=== PATIENT | female | born 1985 | race Caucasian/White ===

== ENCOUNTER → 2021-04-12 | Outpatient (CLI) | payer BC ==
[2021-04-12 17:10] LABS: HEMATOCRIT 36.7 % (36.0-47.0); HEMOGLOBIN 12.5 g/dl (12.0-15.5); MEAN CORPUSCULAR HEMOGLOBIN 31.4 pg (27.0-33.0); MEAN CORPUSCULAR HGB CONC 34.1 g/dl (32.0-36.5); MEAN CORPUSCULAR VOLUME 92.2 fl (80.0-96.0); PLATELET COUNT, AUTOMATED 221 10^3/uL (150-450); RED BLOOD COUNT 3.98 10^6/uL (4.00-5.40)
== END ==
LOC: M PLALAB 15:34
PROVIDERS: ATTEND Obstetrics & Gynecology
DX: Z34.90 Encounter for supervision of normal pregnancy, unspecified, unspecified trimester (principal); Z3A.00 Weeks of gestation of pregnancy not specified

== ENCOUNTER → 2021-04-12 | Outpatient (CLI) | payer BC ==
--- NOTE | 2021-04-12 15:39 | REP ---
INDICATION: . COMPARISON: None. TECHNIQUE: Real-time sonographic evaluation of pelvis performed. FINDINGS: A large sac-like structure is seen in the uterus measuring approximately 71 x 12 x 40 mm. Average diameter 41 mm would correspond to estimated age 9 weeks 5 days. There is no internal yolk sac or pole identified. Right ovary measures 3.4 x 2.0 x 1.5 cm and left ovary 3.4 x 2.3 x 2.7 cm. There is a 2 cm cystic structure in the left ovary probably representing a corpus luteum. No free fluid is seen in there is no other evidence of adnexal mass. IMPRESSION: Sac-like structure in the uterus 71 x 12 x 40 mm. No internal yolk sac or pole. No suspicious adnexal mass or free fluid. The findings most likely represent a blighted ovum. Recommend correlation with serial quantitative beta HCG values to rule out the less likely possibility that this represents a pseudo gestational sac of ectopic . <Electronically signed by Harrison Garnica > 04/12/21 [id number]
== END ==
LOC: M WHC 14:34
PROVIDERS: ATTEND Obstetrics & Gynecology
DX: Z34.90 Encounter for supervision of normal pregnancy, unspecified, unspecified trimester (principal); Z3A.00 Weeks of gestation of pregnancy not specified

== ENCOUNTER → 2021-04-24 | Outpatient (REF) | payer BC | LOC: M SFHCWAGY 18:45 | PROVIDERS: ATTEND Obstetrics & Gynecology | DX: O02.1 Missed abortion (principal) ==

== ENCOUNTER → 2021-05-13 | Outpatient (REF) | payer BC | LOC: M PLALAB 14:15 | PROVIDERS: ATTEND Obstetrics & Gynecology | DX: O03.9 Complete or unspecified spontaneous abortion without complication (principal) ==

== ENCOUNTER → 2021-05-20 | Outpatient (REF) | payer BC | LOC: M PLALAB 12:07 | PROVIDERS: ATTEND Obstetrics & Gynecology | DX: O03.9 Complete or unspecified spontaneous abortion without complication (principal) ==

== ENCOUNTER → 2021-06-05 | Outpatient (REF) | payer BC | LOC: M PLALAB 11:16 | PROVIDERS: ATTEND Obstetrics & Gynecology | DX: O03.9 Complete or unspecified spontaneous abortion without complication (principal) ==

== ENCOUNTER → 2021-07-12 | Outpatient (REF) | payer BC | LOC: M PLALAB 09:46 | PROVIDERS: ATTEND Obstetrics & Gynecology | DX: O03.9 Complete or unspecified spontaneous abortion without complication (principal) ==

== ENCOUNTER → 2021-07-12 | Outpatient (REF) | payer BC | LOC: M LABDRAWC 15:51 | PROVIDERS: ATTEND Obstetrics & Gynecology | DX: O03.9 Complete or unspecified spontaneous abortion without complication (principal) ==

== ENCOUNTER → 2021-07-19 | Outpatient (REF) | payer OTHER | LOC: M SFHCWAGY 11:22 | PROVIDERS: ATTEND Obstetrics & Gynecology | DX: O03.9 Complete or unspecified spontaneous abortion without complication (principal) ==

== ENCOUNTER → 2022-02-14 | Outpatient (CLI) | payer OTHER ==
[2022-02-14 16:05] LABS: BASO % 0.4 % (0.0-1.0); EOS # 0.2 10^3/uL (0.0-0.5); EOS % 2.2 % (0.0-3.0); HEMATOCRIT 36.3 % (36.0-47.0); HEMOGLOBIN 12.5 g/dl (12.0-15.5); LYMPH # 1.6 10^3/uL (1.5-5.0); LYMPH % 16.8 % (24.0-44.0); MEAN CORPUSCULAR HEMOGLOBIN 31.2 pg (27.0-33.0); MEAN CORPUSCULAR HGB CONC 34.4 g/dl (32.0-36.5); MEAN CORPUSCULAR VOLUME 90.5 fl (80.0-96.0); MONO # 0.5 10^3/uL (0.0-0.8); MONO % 4.9 % (2.0-8.0); NEUTROPHILS % 75.4 % (36.0-66.0); PLATELET COUNT, AUTOMATED 226 10^3/uL (150-450); RED BLOOD COUNT 4.01 10^6/uL (4.00-5.40); WHITE BLOOD COUNT 9.3 10^3/uL (4.0-10.0)
[2022-02-14 17:14] LABS: HIV 1&2 SCREEN CENTAUR NEGATIVE (NEGATIVE)
[2022-02-14 17:47] LABS: GC DNA AMPLIFICATION NEGATIVE (NEGATIVE)
== END ==
LOC: M PLALAB 13:51
PROVIDERS: ATTEND Obstetrics & Gynecology
DX: O09.529 Supervision of elderly multigravida, unspecified trimester (principal); Z3A.00 Weeks of gestation of pregnancy not specified

== ENCOUNTER → 2022-04-16 | Outpatient (CLI) | payer OTHER | LOC: M WHC 10:22 | PROVIDERS: ATTEND Obstetrics & Gynecology | DX: Z36.9 Encounter for antenatal screening, unspecified (principal); O09.521 Supervision of elderly multigravida, first trimester; Z3A.20 20 weeks gestation of pregnancy ==

== ENCOUNTER → 2022-06-09 | Outpatient (CLI) | payer OTHER ==
[2022-06-09 15:02] LABS: HEMATOCRIT 34.9 % (36.0-47.0); HEMOGLOBIN 11.6 g/dl (12.0-15.5); MEAN CORPUSCULAR HEMOGLOBIN 31.7 pg (27.0-33.0); MEAN CORPUSCULAR HGB CONC 33.2 g/dl (32.0-36.5); MEAN CORPUSCULAR VOLUME 95.4 fl (80.0-96.0); PLATELET COUNT, AUTOMATED 214 10^3/uL (150-450); RED BLOOD COUNT 3.66 10^6/uL (4.00-5.40); WHITE BLOOD COUNT 10.8 10^3/uL (4.0-10.0)
[2022-06-09 16:13] LABS: GC DNA AMPLIFICATION NEGATIVE (NEGATIVE)
== END ==
LOC: M PLALAB 09:20
PROVIDERS: ATTEND Obstetrics & Gynecology
DX: Z34.92 Encounter for supervision of normal pregnancy, unspecified, second trimester (principal)

== ENCOUNTER → 2022-07-11 | Outpatient (CLI) | payer OTHER | LOC: M WHC 07:17 | PROVIDERS: ATTEND Obstetrics & Gynecology | DX: O26.849 Uterine size-date discrepancy, unspecified trimester (principal) ==

== ENCOUNTER → 2022-08-07 | Outpatient (CLI) | payer OTHER | LOC: M WHC 13:51 | PROVIDERS: ATTEND Advanced Practice Midwife | DX: O43.193 Other malformation of placenta, third trimester (principal) ==

== ENCOUNTER → 2022-08-13 | Outpatient (REF) | payer OTHER | LOC: M PLALAB 14:42 | PROVIDERS: ATTEND Obstetrics & Gynecology | DX: O43.199 Other malformation of placenta, unspecified trimester (principal) ==

== ENCOUNTER → 2022-08-22 | Outpatient (CLI) | payer OTHER | LOC: M WHC 12:59 | PROVIDERS: ATTEND Obstetrics & Gynecology | DX: O43.93 Unspecified placental disorder, third trimester (principal); Z3A.37 37 weeks gestation of pregnancy ==

== ENCOUNTER 2022-09-15 09:48 | Inpatient (IN) | payer OTHER ==
[~2022-09-15] VITALS: Ht 162.6 cm; Wt 70.5 kg
[2022-09-15] VITALS (12 sets, daily range): BP systolic 106–136; BP diastolic 54–83
[2022-09-15] MEDS ORDERED: MULTTAB20 PO (10:12)
[2022-09-15] MEDS ORDERED: HOME MED LIST COMPLETE! XX SCH (10:25)
[2022-09-15] MEDS ORDERED: METHYLERGONOVINE MALEATE 0.2MG/ML 1ML VIAL IM PRN (10:50)
[2022-09-15] MEDS ORDERED: OXYTOCIN INJ 10UNITS/ML 1ML VIAL IM PRN (10:50)
[2022-09-15] MEDS ORDERED: TRANEXAMIC ACID INJection 1,000 MG in NS 100 ML IV PRN (10:50)
[2022-09-15] MEDS ORDERED: CARBOPROST TROMETHAMINE 250 MCG/ML AMP IM PRN (10:50)
[2022-09-15] MEDS ORDERED: OXYTOCIN DRIP 30 UNITS in IV 1 EA IV PRN (10:50)
[2022-09-15] MEDS ORDERED: LIDOCAINE 1% MDV 20ML VIAL INFIL PRN (10:50)
[2022-09-15 11:26] LABS: HEMOGLOBIN 13.1 g/dl (12.0-15.5); MEAN CORPUSCULAR HEMOGLOBIN 32.1 pg (27.0-33.0); MEAN CORPUSCULAR HGB CONC 34.5 g/dl (32.0-36.5); MEAN CORPUSCULAR VOLUME 93.1 fl (80.0-96.0); PLATELET COUNT, AUTOMATED 270 10^3/uL (150-450); RED BLOOD COUNT 4.08 10^6/uL (4.00-5.40); WHITE BLOOD COUNT 22.2 10^3/uL (4.0-10.0)
[2022-09-15] MEDS ORDERED: BICITRA 30ML SOLN UDC PO ONE (19:20)
[2022-09-15] MEDS ORDERED: AZITHROMYCIN INJ 500 MG, VIAL MATE ADAPTER 1 EACH in NS 250 ML IV ONE (19:20)
[2022-09-15] MEDS ORDERED: LACTATED RINGER'S 1000 ML IV STA (19:20)
[2022-09-15] MEDS ORDERED: ceFAZolin SOD 2 GM in IV 1 EA IV ONE (19:20)
[2022-09-15] MEDS ORDERED: LR 1,000 ML IV SCH ×2 (19:20→20:25)
[2022-09-15] MEDS ORDERED: OXYTOCIN 30UNITS IN 0.9% NaCl 500ML IV BAG As Ordered ONE ×2 (20:08→21:14)
[2022-09-15] MEDS ORDERED: diphenhydrAMINE 50MG/ML VIAL IV PRN (20:25)
[2022-09-15] MEDS: SLF 3 ML SYR IV SCH (20:25)
[2022-09-15] MEDS ORDERED: ONDANSETRON 4MG 2ML VIAL IV PRN (20:25)
[2022-09-15] MEDS ORDERED: METOCLOPRAMIDE INJ 10MG/2ML VIAL IV PRN (20:25)
[2022-09-15] MEDS ORDERED: NALOXONE INJ 0.4MG/1ML VIAL IV PRN ×2 (20:25)
[2022-09-15] MEDS ORDERED: **NOTE PATIENT COMMENT** MISC XX SCH (20:25)
[2022-09-15] MEDS ORDERED: fentaNYL 100 MCG/2 ML INJECTION IV PRN (20:25)
[2022-09-15] MEDS ORDERED: ONDANSETRON 4MG 2ML VIAL As Ordered ONE (20:26)
[2022-09-15] MEDS ORDERED: PHENYLephrine 500MCG 5ML (100MCG/ML) SYRINGE As Ordered ONE (20:42)
[2022-09-15] MEDS ORDERED: ePHEDrine SULFATE 25 MG/5 ML(5MG/ML) SYRINGE As Ordered ONE (20:42)
[2022-09-15 20:43] LABS: CORD GAS ABE V -5.1; CORD GAS HCO3 V 19.3 MEQ/L; CORD GAS PCO2 V 34.3 mmHg; CORD GAS PH V 7.368 UNITS; CORD GAS PO2 V 28.7 mmHg; CORD GAS SBC V 19.5 MEQ/L; CORD GAS TCO2 V 20.3 MEQ/L
[2022-09-15 20:45] LABS: CORD GAS ABE A -5.4; CORD GAS HCO3 A 21.6 MEQ/L; CORD GAS PCO2 A 47.4 mmHg; CORD GAS PH A 7.276 UNITS; CORD GAS PO2 A 22.4 mmHg; CORD GAS SBC A 18.8 MEQ/L
[2022-09-15] MEDS ORDERED: KETOROLAC 60MG 2ML VIAL As Ordered ONE (21:05)
[2022-09-15] MEDS ORDERED: RHOGAM 300MCG (1500IU) INJ IM SCH (21:10)
[2022-09-15] MEDS ORDERED: MORPHINE 4 MG/ML 1ML VIAL IV PRN (21:10)
[2022-09-15] MEDS ORDERED: OXYTOCIN DRIP 30 UNITS in IV 1 EA IV SCH (21:10)
[2022-09-15] MEDS ORDERED: PERCOCET 5MG/325MG TAB PO PRN (21:10)
[2022-09-15] MEDS ORDERED: MORPHINE PRES-FREE INJ 10 MG/10 ML VIAL As Ordered ONE (21:11)
[2022-09-15] MEDS ORDERED: IBUP80TA PO (21:21)
[2022-09-15] MEDS ORDERED: PERCOCET PO (21:21)
[2022-09-15] MEDS ORDERED: COLA100C5 PO (21:24)
[2022-09-16 00:25] VITALS: BP 100/59
[2022-09-16] MEDS: KETOROLAC 30 MG/ML 1ML VIAL IV SCH ×3 (03:00→15:49)
[2022-09-16] MEDS: SLF 3 ML SYR IV SCH ×2 (04:25→12:25)
[2022-09-16 06:44] VITALS: BP 96/54
[2022-09-16 07:03] LABS: HEMATOCRIT 35.2 % (36.0-47.0); HEMOGLOBIN 11.9 g/dl (12.0-15.5); MEAN CORPUSCULAR HEMOGLOBIN 31.5 pg (27.0-33.0); MEAN CORPUSCULAR HGB CONC 33.8 g/dl (32.0-36.5); MEAN CORPUSCULAR VOLUME 93.1 fl (80.0-96.0); PLATELET COUNT, AUTOMATED 250 10^3/uL (150-450); RED BLOOD COUNT 3.78 10^6/uL (4.00-5.40); WHITE BLOOD COUNT 26.8 10^3/uL (4.0-10.0)
[2022-09-16] MEDS: DOCUSATE SODIUM 100MG CAPSULE PO SCH ×2 (09:13→22:09)
[2022-09-16] MEDS: SIMETHICONE 80MG CHEW TAB PO PRN ×2 (09:13→14:03)
[2022-09-16] MEDS: PRENATAL VITAMINS CHEWABLE TABLET PO SCH (09:13)
[2022-09-16] MEDS ORDERED: METHYLERGONOVINE MALEATE 0.2MG/ML 1ML VIAL ONE (13:51)
[2022-09-16 18:00] VITALS: BP 91/53
[2022-09-16 22:00] VITALS: BP 98/57
[2022-09-16] MEDS: IBUPROFEN 800 MG TAB PO SCH (22:10)
[2022-09-16] MEDS: PERCOCET 5MG/325MG TAB PO PRN (22:41)
[2022-09-17 02:00] VITALS: BP 95/50
[2022-09-17 05:30] VITALS: BP 90/55
[2022-09-17] MEDS: IBUPROFEN 800 MG TAB PO SCH ×3 (06:05→22:38)
[2022-09-17] MEDS ORDERED: MEASLES,MUMPS,RUBELLA VACCINE INJ (MMR-II) SC.IMMUN ONE (09:00)
[2022-09-17] MEDS: DOCUSATE SODIUM 100MG CAPSULE PO SCH ×2 (09:05→20:49)
[2022-09-17] MEDS: SIMETHICONE 80MG CHEW TAB PO PRN ×2 (09:05→15:17)
[2022-09-17] MEDS: PRENATAL VITAMINS CHEWABLE TABLET PO SCH (09:05)
[2022-09-17] MEDS: PERCOCET 5MG/325MG TAB PO PRN ×3 (09:06→19:51)
[2022-09-17 18:00] VITALS: BP 98/56
[2022-09-18] MEDS: PERCOCET 5MG/325MG TAB PO PRN ×3 (01:09→11:14)
[2022-09-18 06:00] VITALS: BP 91/53
[2022-09-18] MEDS: IBUPROFEN 800 MG TAB PO SCH (06:34)
[2022-09-18] MEDS: DOCUSATE SODIUM 100MG CAPSULE PO SCH (08:39)
[2022-09-18] MEDS: PRENATAL VITAMINS CHEWABLE TABLET PO SCH (08:39)
== END 2022-09-18 14:50 | disposition home or self-care (01) | DRG 788 ==
LOC: M LDO 09:48 → M LDI 10:15 → M OBS 22:20
PROVIDERS: ADMIT Advanced Practice Midwife; ATTEND Obstetrics & Gynecology
PROC: 10D00Z1 Extraction of Products of Conception, Low, Open Approach (ICD-10-PCS; principal; 2022-09-15 20:08)
DX: O48.0 Post-term pregnancy (principal); Z3A.41 41 weeks gestation of pregnancy; O43.193 Other malformation of placenta, third trimester; O09.523 Supervision of elderly multigravida, third trimester; Z88.5 Allergy status to narcotic agent; O69.89X0 Labor and delivery complicated by other cord complications, not applicable or unspecified; O64.0XX0 Obstructed labor due to incomplete rotation of fetal head, not applicable or unspecified; Z37.0 Single live birth

== ENCOUNTER → 2024-10-05 | Outpatient (REF) | payer BC, OTHER ==
[~2024-10-05] MED LIST: COLA100C5 PO; IBUP80TA PO; MULTTAB20 PO; PERCOCET PO
[2024-10-05 18:50] LABS: HEMATOCRIT 41.4 % (36.0-47.0); HEMOGLOBIN 13.6 g/dl (12.0-15.5); MEAN CORPUSCULAR HEMOGLOBIN 29.6 pg (27.0-33.0); MEAN CORPUSCULAR HGB CONC 32.9 g/dl (32.0-36.5); PLATELET COUNT, AUTOMATED 259 10^3/uL (150-450); WHITE BLOOD COUNT 4.6 10^3/uL (4.0-10.0)
[2024-10-05 19:27] LABS: THYROID STIMULATING HORMONE 1.617 uIU/ML (0.55-4.78); TOTAL 25(OH) VITAMIN D 60.2 NG/ML (20.0-100.0)
[2024-10-05 19:31] LABS: FREE T4 1.33 NG/DL (0.89-1.76)
[2024-10-05 19:36] LABS: ALBUMIN 4.3 G/DL (3.2-5.2); BILIRUBIN,TOTAL 2.3 MG/DL (0.3-1.2); CALCIUM LEVEL 9.4 MG/DL (8.5-10.1); CHOLESTEROL RISK RATIO 2.08 (<5); CREATININE FOR GFR 0.92 MG/DL (0.55-1.30); GLOMERULAR FILTRATION RATE 81.7 (>60); HDL CHOLESTEROL 76.2 MG/DL (>40); LDL CHOLESTEROL 72.6 MG/DL (<100); NON-HDL-C 82.8 MG/DL; POTASSIUM SERUM 4.5 MMOL/L (3.5-5.1); TOTAL PROTEIN 7.4 G/DL (5.7-8.2)
== END ==
LOC: M LABDRAWC 17:14
PROVIDERS: ATTEND Physician Assistant Medical
DX: Z83.438 Family history of other disorder of lipoprotein metabolism and other lipidemia (principal); Z76.89 Persons encountering health services in other specified circumstances; N92.6 Irregular menstruation, unspecified; R63.5 Abnormal weight gain